=== PATIENT | female | born 1950 | race Caucasian/White ===

== ENCOUNTER → 2019-10-01 09:10 | Outpatient (BNVA) | payer BC, MEDICARE, SELFPAY | PROVIDERS: Family Provider Family Medicine; Visit Provider Family Medicine | DX: I10 Essential (primary) hypertension (principal); E11.9 Type 2 diabetes mellitus without complications; R60.0 Localized edema; K21.9 Gastro-esophageal reflux disease without esophagitis; E55.9 Vitamin D deficiency, unspecified | CPT/HCPCS: 80053; 80061; 82044; 82306; 85025 ==

== ENCOUNTER → 2019-11-29 15:52 | Outpatient (BNVA) | payer MEDICARE, BC, SELFPAY | PROVIDERS: Family Provider Family Medicine; PCP Family Medicine; Visit Provider Family Medicine | DX: I10 Essential (primary) hypertension (principal) | CPT/HCPCS: 80053 ==

== ENCOUNTER → 2020-01-04 08:52 | Outpatient (BNVA) | payer BC, MEDICARE, SELFPAY | PROVIDERS: Family Provider Family Medicine; PCP Family Medicine; Visit Provider Family Medicine | DX: E78.5 Hyperlipidemia, unspecified (principal); E55.9 Vitamin D deficiency, unspecified | CPT/HCPCS: 80053; 80061; 82306 ==

== ENCOUNTER 2020-01-05 08:52 | Emergency (ER) | payer BC, MEDICARE, SELFPAY ==
[2020-01-05 08:57] VITALS: BP 153/95; PULSE 115; RESP 18; TEMP 36.5; O2SAT 94; BMI 35.2
--- NOTE | 2020-01-05 09:19 | ED_ITS ---
HPI - Arrhythmia/Palpitations General: Chief Complaint: Arrhythmia/Palpitations Stated Complaint: HIGH HR/HEART MONITOR PLACED 01/03 Time Seen by Provider: 01/05/20 09:04 History of Present Illness: HPI narrative: 69-year-old female presents after being started on a Holter monitor and having events get called and. She has had one little very brief episode a look like V. tach that was nonsustained looks like probably 3-4 beats then she had some intermittent atrial fibrillation when she presented here she is in atrial fibrillation she is noticing palpitations. She has had this for the last 2 weeks she has noticed that emotional and physical exertion will worsen it bringing about it is relieved by rest. She never had any chest pain with that she never had any shortness of breath with it. Denies any other respiratory symptoms associated with no nausea or vomiting. MD complaint: rapid heart beat, heart racing , skipped beats , palpitations and irregular heart beat Onset (ago): week(s) Duration: intermittent Severity: mild Context: occurred during exertion Arrhythmia history: atrial fibrillation Associated symptoms: Reports no associated symptoms; Deny cough, diaphoresis, nausea, paresthesias, pre-syncope, sense of impending doom, short of breath, syncope or vomiting Review of Systems Const: Denies: diaphoresis ENMT: Denies: throat pain, ear or mastoid pain, nasal discharge or nasal congestion Card: Denies: syncope or pre-syncope Resp: Denies: dyspnea, productive cough or non-productive cough GI: Denies: nausea or vomiting : Denies: flank pain, difficulty voiding, dysuria, urinary frequency or urinary urgency Skin/Breast: Denies: rash or pruritus PFSH ED PFSH: Medical History Essential hypertension Fibromyalgia Leg edema Surgical History H/O knee surgery History of hammer toe correction History of hand surgery History of rectal sphincterotomy Hx of varicose vein stripping Family History Other Diabetes Hypertension Social History Smoking and tobacco status: never smoked Alcohol intake: never Physical Exam Const: COMMON NORMALS: no acute distress GENERAL APPEARANCE: cooperative and comfortable ORIENTATION/CONSCIOUSNESS: Yes awake, Yes oriented to person, Yes oriented to place and Yes oriented to time HENMT: COMMON NORMALS: normocephalic, atraumatic, hearing grossly normal bilaterally, external ears normal, EAC's normal, TM's normal bilaterally, Normal nasal mucous membranes and turbinates present, moist oral mucous membranes and oropharynx normal HEAD & SCALP: normocephalic and atraumatic NOSE: Normal nasal mucous membranes and turbinates present EXTERNAL EAR: Yes external ears normal EXTERNAL AUDITORY CANAL: EAC's normal TYMPANIC MEMBRANE: TM's normal bilaterally Eye: COMMON NORMALS: Equal, round and reactive pupils present, EOMs intact bilaterally, conjunctivae normal and no scleral icterus CONJUNCTIVA: Yes conjunctivae normal PUPIL: Yes Equal, round and reactive pupils present Neck/C-Spine: COMMON NORMALS: full ROM, no lymphadenopathy, supple and no JVD Lymph: LYMPHATIC: no lymphadenopathy noted and no lymphedema noted Resp: COMMON NORMALS: normal respiratory effort, No retractions, No use of accessory muscles and clear to auscultation bilaterally AUSCULTATION: clear to auscultation bilaterally Cardio: COMMON NORMALS: no JVD, regular rate, regular rhythm and No murmurs present (Cardio) RATE: regular rate RHYTHM: regular rhythm GI: COMMON NORMALS: Soft to palpation and No hepatosplenomegaly present AUSCULTATION: Yes normoactive bowel sounds PALPATION: Yes Soft to palpation, No Tenderness to palpation present (GI), No Guarding due to palpation present (GI) and Yes No hepatosplenomegaly present Extremity: COMMON NORMALS: normal to inspection, capillary refill normal, no clubbing, cyanosis or edema, no calf tenderness and no pedal edema Neuro: SENSORIUM/ORIENTATION: Yes oriented to person, Yes oriented to place and Yes oriented to time Skin: COMMON NORMALS: no rashes or lesions noted GENERAL SKIN EXAM: no rashes or lesions noted Course Vital Signs: Vital signs: Vital Signs Temperature 97.6 F 01/05/20 13:10 Pulse Rate 109 H 01/05/20 13:10 Respiratory Rate 18 01/05/20 13:10 Blood Pressure 169/104 01/05/20 13:10 Pulse Oximetry 98 01/05/20 13:10 MDM - Arrhythmia/Palpitations Lab Data: Labs: Lab Results 01/05/20 01/05/20 01/05/20 Range/Units 09:30 09:30 09:30 WBC 6.6 (4.0-10.0) 10^3/ uL RBC 4.63 (4.1-5.3) 10^6/u L Hgb 13.0 (11.5-15.3) g/dL Hct 42.2 (37.0-47.0) % MCV 91.1 (81-99) fL MCH 28.1 (28.0-34.0) pg MCHC 30.8 (30.0-36.0) g/dL RDW 14.4 (12.1-15.1) % Plt Count 158 (130-400) 10^3/c mm MPV 10.5 H (7.4-10.4) fL Neut % (Auto) 63.8 % Lymph % (Auto) 20.0 % [place] % (Auto) 12.8 % Eos % (Auto) 2.6 % Baso % (Auto) 0.5 % Neut # (Auto) 4.24 (1.8-7.7) 10^3/u L Lymph # (Auto) 1.3 (0.8-4.8) 10^3/u L [place] # (Auto) 0.9 (0.2-0.9) 10^3/u L Eos # (Auto) 0.2 (0.0-0.8) 10^3/u L Baso # (Auto) 0.0 (0.0-0.1) 10^3/u L Nucleated RBC % (a uto) 0 % Nucleated RBCs # 0.0 /100WBC Sodium 140 (136-145) mmol/L Potassium 4.3 (3.5-5.1) mmol/L Chloride 105 (98-107) mmol/L Carbon Dioxide 26 (22-29) mmol/L Anion Gap 13.3 (5-19) BUN 21 (8-23) mg/dL Creatinine 1.1 H (0.5-0.9) mg/dL GFR Calculation 49.5 L (90-130) mL/min Glucose 127 H (65-115) mg/dL Calculated Osmolal ity 288 (285-295) mOsm/k g Calcium 9.5 (8.5-10.5) mg/dL Total Bilirubin 0.3 (0.15-1.2) mg/dL AST 55 H (0-32) U/L ALT 75 H (0-33) U/L Alkaline Phosphata se 69 (35-105) IU/L Creatine Kinase 503 H* (26-192) U/L Troponin T Baselin e 26 H (0-10) ng/L Troponin T 120 Min poarch (0-10) ng/L Delta Troponin T (0-10) ABS# Total Protein 6.8 (6.6-8.7) g/dL Albumin 4.5 (3.5-5.2) g/dL Globulin 2.3 (1.3-4.6) g/dL 01/05/20 Range/Units 11:31 WBC (4.0-10.0) 10^3/ uL RBC (4.1-5.3) 10^6/u L Hgb (11.5-15.3) g/dL Hct (37.0-47.0) % MCV (81-99) fL MCH (28.0-34.0) pg MCHC (30.0-36.0) g/dL RDW (12.1-15.1) % Plt Count (130-400) 10^3/c mm MPV (7.4-10.4) fL Neut % (Auto) % Lymph % (Auto) % [place] % (Auto) % Eos % (Auto) % Baso % (Auto) % Neut # (Auto) (1.8-7.7) 10^3/u L Lymph # (Auto) (0.8-4.8) 10^3/u L [place] # (Auto) (0.2-0.9) 10^3/u L Eos # (Auto) (0.0-0.8) 10^3/u L Baso # (Auto) (0.0-0.1) 10^3/u L Nucleated RBC % (a uto) % Nucleated RBCs # /100WBC Sodium (136-145) mmol/L Potassium (3.5-5.1) mmol/L Chloride (98-107) mmol/L Carbon Dioxide (22-29) mmol/L Anion Gap (5-19) BUN (8-23) mg/dL Creatinine (0.5-0.9) mg/dL GFR Calculation (90-130) mL/min Glucose (65-115) mg/dL Calculated Osmolal ity (285-295) mOsm/k g Calcium (8.5-10.5) mg/dL Total Bilirubin (0.15-1.2) mg/dL AST (0-32) U/L ALT (0-33) U/L Alkaline Phosphata se (35-105) IU/L Creatine Kinase (26-192) U/L Troponin T Baselin e (0-10) ng/L Troponin T 120 Min poarch 22.96 H (0-10) ng/L Delta Troponin T -3.04 L (0-10) ABS# Total Protein (6.6-8.7) g/dL Albumin (3.5-5.2) g/dL Globulin (1.3-4.6) g/dL Discharge Plan Discharge Patient Disposition: Left Against Medical Advice Clinical Impression: Atrial fibrillation, BETH (acute kidney injury), Rhabdomyolysis Condition: Stable Prescriptions: New metoprolol succinate 25 mg capsule,sprinkle,ER 24hr 25 mg PO DAILY Qty: 30 RF: 0 Held lisinopril 20 mg tablet 20 mg PO DAILY Qty: 30 RF: 3 Hold Instructions: Resume on 01/12/20. Lasix 20 mg tablet 20 mg PO DAILY RF: 0 Hold Instructions: Resume on 01/12/20. Hold until your primary care doctor advise you to resume No Action omeprazole 20 mg capsule,delayed release(DR/EC) 20 mg PO DAILY Qty: 30 RF: 5 atorvastatin 10 mg tablet 10 mg PO DAILY Qty: 45 RF: 0 potassium chloride 10 mEq tablet,ER particles/crystals 10 meq PO DAILY RF: 0 Referrals: Ashley Lizama DO [Primary Care Provider] - Activity Restrictions/Additional Instructions: You have several serious medical conditions identified during your stay in the emergency room. These include acute kidney injury rhabdomyolysis and atrial fibrillation you have elected not to be placed on observation as we recommended. These medical conditions could deteriorate further leading to severe organ dysfunction, stroke or . Recommend you follow-up with your primary care doctor as soon as possible. Discharge Date/Time: 01/05/20 13:13 Coding Level of Care Code ED Retail Wireless Sales Consultant for g Fwd Exam Comprehensive
[2020-01-05 09:20] VITALS: BP 148/94; PULSE 116; RESP 18; O2SAT 97
--- NOTE | 2020-01-05 09:25 | ECG_ITS ---
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 Measurements Intervals [place] Rate: 113 P: 266 MD: 106 QRS: 25 QRSD: 87 T: -5 QT: 303 QTc: 417 Interpretive Statements ATRIAL FLUTTER NON SPECIFIC ST-T WAVE CHANGES IN INFERIOR LEADS No previous ECG available for comparison Electronically Signed On 01-05-2020 10:59:36 CDT by Armen Pike M.D. [email or web address]/[id number] f
--- NOTE | 2020-01-05 09:25 | XR_ITS ---
WS: [id number] PORTABLE CHEST HISTORY: dyspnea/cough COMPARISON: None available. Lungs are clear and well expanded. No pleural effusion or pneumothorax. Cardiac size: Mildly enlarged cardiac silhouette. Cardiac loop recorder over the central thoracic spi ne. Mediastinum/Aorta: Mild atherosclerosis aorta. No osseous abnormality seen. XR/XR chest 1V portable [id number] IMPRESSION: Mild cardiomegaly and mild atherosclerosis aorta.
[2020-01-05] MEDS: metoprolol tartrate 25 mg Tablet PO (09:36)
[2020-01-05] MEDS: metoprolol tartrate 1 mg/1 mL SDV 5 mL 2.5 MG IV (09:36)
[2020-01-05 09:43] LABS: Basophils % 0.5 %; Eosinophils # 0.2 10^3/uL (0.0-0.8); Eosinophils % 2.6 %; Hematocrit 42.2 % (37.0-47.0); Lymphocytes # 1.3 10^3/uL (0.8-4.8); Mean Corpuscular HGB Conc 30.8 g/dL (30.0-36.0); Mean Corpuscular Hemoglobin 28.1 pg (28.0-34.0); Mean Corpuscular Volume 91.1 fL (81-99); Mean Platelet Volume 10.5 fL (7.4-10.4); Monocytes # 0.9 10^3/uL (0.2-0.9); Monocytes % 12.8 %; Neutrophils # 4.24 10^3/uL (1.8-7.7); Neutrophils % 63.8 %; Nucleated Red Blood Cells % 0 %; Platelet Count 158 10^3/cmm (130-400); Red Blood Count 4.63 10^6/uL (4.1-5.3); Red Cell Distribution Width 14.4 % (12.1-15.1); White Blood Count 6.6 10^3/uL (4.0-10.0)
[2020-01-05 09:59] LABS: Alanine Aminotransferase 75 U/L (0-33); Albumin Level 4.5 g/dL (3.5-5.2); Alkaline Phosphatase 69 IU/L (35-105); Anion Gap 13.3 (5-19); Aspartate Amino Transferase 55 U/L (0-32); Blood Urea Nitrogen 21 mg/dL (8-23); Calcium 9.5 mg/dL (8.5-10.5); Carbon Dioxide 26 mmol/L (22-29); Chloride 105 mmol/L (98-107); Globulin 2.3 g/dL (1.3-4.6); Glomerular Filtration Rate 49.5 mL/min (90-130); Glucose 127 mg/dL (65-115); Osmolality Calculated 288 mOsm/kg (285-295); Potassium 4.3 mmol/L (3.5-5.1); Sodium 140 mmol/L (136-145); Total Bilirubin 0.3 mg/dL (0.15-1.2); Total Protein 6.8 g/dL (6.6-8.7)
[2020-01-05 10:00] LABS: Troponin(5th) Baseline 26 ng/L (0-10)
[2020-01-05 10:10] LABS: Creatine Phosphokinase 503 U/L (26-192)
[2020-01-05 10:42] VITALS: BP 146/95; PULSE 110; RESP 18; O2SAT 96
--- NOTE | 2020-01-05 11:25 | ECG_ITS ---
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 Measurements Intervals [place] Rate: 109 P: 259 PA: 152 QRS: 7 QRSD: 94 T: 5 QT: 339 QTc: 457 Interpretive Statements ATRIAL FLUTTER Non specific ST-T wave changes are noted Compared to ECG 01/05/2020 09:33:05 No significant changes are noted Electronically Signed On 01-05-2020 12:13:56 CDT by Armen Pike M.D. [email or web address].[employer]store/[id number] f
[2020-01-05 11:55] VITALS: BP 134/81; PULSE 82; RESP 16
[2020-01-05] MEDS: metoprolol tartrate 1 mg/1 mL SDV 5 mL 5 MG IV (12:11)
[2020-01-05 12:34] LABS: Troponin 5 2HR 22.96 ng/L (0-10)
[2020-01-05 12:45] LABS: Troponin 5 2HR Delta -3.04 ABS# (0-10)
[2020-01-05 13:10] VITALS: BP 169/104; PULSE 109; RESP 18; TEMP 36.4; O2SAT 98
== END 2020-01-05 13:13 | disposition left against medical advice (07) ==
PROVIDERS: Emergency Provider Family Medicine; PCP Family Medicine
DX: I48.91 Unspecified atrial fibrillation (principal); N17.9 Acute kidney failure, unspecified; M62.82 Rhabdomyolysis; Z53.21 Procedure and treatment not carried out due to patient leaving prior to being seen by health care provider; I10 Essential (primary) hypertension
CPT/HCPCS: 12345; 36415; 71045; 80053; 82550; 84484; 85025; 93005; 93010; 96374; 96376; 99283; 99284; J3490

== ENCOUNTER 2020-03-29 12:46 | Outpatient (CLI) | payer BC, MEDICARE, SELFPAY ==
--- NOTE | 2020-03-29 12:51 | USCV_ITS ---
Tammy Rangel Age: 70 Gender: F : 1950 Exam Date: 03/29/2020 13:14 Ordering Phys: Meenu Meza MD Technologist: Dominique Dozier Exam Location: [facility] [place] Indication: CHRONIC AFIB BP: / HR: 101 Rhythm: Atrial flutter Technical Quality: Adequate MEASUREMENTS (Male / Female) Normal Values 2D ECHO LV Diastolic Diameter PLAX 3.1 cm 4.2 - 5.9 / 3.9 - 5.3 cm LV Systolic Diameter PLAX 2.5 cm LV Chamber Size 3.2 cm IVS Diastolic Thickness 1.2 cm 0.6 - 1.0 / 0.6 - 0.9 cm IVS Systolic Thickness 1.6 cm LVPW Diastolic Thickness 1.1 cm 0.6 - 1.0 / 0.6 - 0.9 cm LVPW Systolic Thickness 1.6 cm RV Chamber Size 3.6 cm LVOT Diameter 2.0 cm LV Ejection Fraction 2D Teich 45.3 % LV Ejection Fraction MOD 2C 55.5 % LV Ejection Fraction 2C AL 55.8 % LA Diameter 3.2 cm LA Width 2.9 cm LA Height 4.8 cm RA Width 4.6 cm RA Height 5.8 cm Aorta at Sinotubular Diameter 2.7 cm M-MODE LV Diastolic Diameter MM 3.5 cm 4.2 - 5.9 / 3.9 - 5.3 cm LV Systolic Diameter MM 2.6 cm LV Ejection Fraction MM Teich 50.9 % IVS Diastolic Thickness MM 1.3 cm 0.6 - 1.0 / 0.6 - 0.9 cm IVS Systolic Thickness MM 1.4 cm LVPW Diastolic Thickness MM 1.4 cm 0.6 - 1.0 / 0.6 - 0.9 cm LVPW Systolic Thickness MM 1.8 cm RV Diastolic Diameter MM 2.8 cm Aortic Annulus Diameter 2.7 cm LA Ao Ratio MM 1.5 MV E Point Septal Separation 0.4 cm DOPPLER AV Peak Velocity 121.0 cm/s LVOT Peak Velocity 84.0 cm/s AV Area Cont Eq vti 2.4 cm squared AV Area Cont Eq pk 2.2 cm squared MV Area PHT 3.2 cm squared MV E' Velocity 66.0 cm/s Mitral E to MV E' Ratio 9.8 Mitral E to LV E' Lateral Ratio 9.2 Mitral E to LV E' Septal Ratio 10.6 TR Peak Velocity 200.3 cm/s TR Peak Gradient 16.0 mmHg TR Mean Velocity 112.8 cm/s TR Mean Gradient 6.2 mmHg TR Velocity Time Integral 39.6 cm TV Peak E Velocity 77.0 cm/s Right Atrial Pressure 3.0 mmHg Pulmonary Artery Systolic Pressu 19.0 mmHg PV Peak Velocity 73.3 cm/s RV Acceleration Time 0.2 s RV Ejection Time 0.5 s RV AcT/ET 0.4 FINDINGS Left Ventricle Normal left ventricular size and systolic function with no regional wall motion abnormalities. LVEF is 55 to 60%. Mild left ventricular hypertrophy is noted. Diastolic function cannot be determined because of atrial flutter. Right Ventricle The right ventricle is normal in size and function. Right Atrium The right atrium is mildly dilated. Left Atrium The left atrium is normal in size. Mitral Valve Structurally normal mitral valve without significant stenosis or prolapse. There is no mitral regurgitation. Aortic Valve Structurally normal aortic valve without significant sclerosis or stenosis. There is no aortic regurgitation. Tricuspid Valve Structurally normal tricuspid valve without significant stenosis . Mild tricuspid regurgitation is noted. RVSP is 15 to 20 mmHg. RA pressure is 0 to 5 mmHg. Pulmonic Valve Structurally normal pulmonic valve without significant stenosis. There is no pulmonic regurgitation. Pericardium Normal pericardium without effusion. Aorta Normal ascending aorta dimension. CONCLUSIONS LV systolic function is normal. Diastolic function is indeterminate because of atrial flutter. Mildly dilated right atrium is noted. Mild tricuspid regurgitation is present. Compared to prior study from 12/10/2018, patient's diastolic function can not be determined now because of atrial flutter. Armen Pike MD (Electronically Signed) Final Date: 30 March 2020 09:10 S
== END 2020-03-29 12:47 | disposition home or self-care (01) ==
PROVIDERS: PCP Internal Medicine; Visit Provider Internal Medicine
DX: I48.91 Unspecified atrial fibrillation (principal); I07.1 Rheumatic tricuspid insufficiency; I10 Essential (primary) hypertension
CPT/HCPCS: 80048; 83880; 93306

== ENCOUNTER 2020-06-08 12:59 | Outpatient (CLI) | payer BC, MEDICARE, SELFPAY | END 2020-06-08 13:00 | disposition home or self-care (01) | LOC: WOUND 13:03 | PROVIDERS: PCP Internal Medicine; Visit Provider Nurse Practitioner Family | DX: L97.822 Non-pressure chronic ulcer of other part of left lower leg with fat layer exposed (principal) | CPT/HCPCS: 11042; 87070; 87077; 87176; 87186; 87205; G0463 ==

== ENCOUNTER 2020-06-14 15:11 | Outpatient (CLI) | payer BC, MEDICARE, SELFPAY ==
--- NOTE | 2020-06-14 15:18 | MM_ITS ---
WS: [id number] BILATERAL DIGITAL SCREENING MAMMOGRAPHY WITH CAD CLINICAL INFORMATION: SCREENING HISTORY: Screening mammogram. No current complaints. COMPARISON: TECHNIQUE: Bilateral CC and MLO views. FINDINGS: Scattered fibroglandular densities bilaterally. No suspicious focal mass, asymmetry, calcifications, or architectural distortion. No evidence of malignancy. MM/[place] [id number] IMPRESSION: BI-RADS: 1-Negative FOLLOW UP: 1 Year Follow-up Recommend return to annual screening mammography.
== END 2020-06-14 15:12 | disposition home or self-care (01) ==
PROVIDERS: PCP Internal Medicine; Visit Provider Internal Medicine
DX: Z12.31 Encounter for screening mammogram for malignant neoplasm of breast (principal)
CPT/HCPCS: 77067

== ENCOUNTER 2020-06-15 14:35 | Outpatient (CLI) | payer BC, MEDICARE, SELFPAY | END 2020-06-15 14:36 | disposition home or self-care (01) | LOC: WOUND 14:36 | PROVIDERS: PCP Internal Medicine; Visit Provider Thoracic Surgery (Cardiothoracic Vascular Surgery) | DX: I87.2 Venous insufficiency (chronic) (peripheral) (principal); L97.822 Non-pressure chronic ulcer of other part of left lower leg with fat layer exposed | CPT/HCPCS: 11042 ==

== ENCOUNTER 2020-06-19 13:47 | Outpatient (CLI) | payer BC, MEDICARE, SELFPAY | END 2020-06-19 13:48 | disposition home or self-care (01) | LOC: WOUND 13:48 | PROVIDERS: PCP Internal Medicine; Visit Provider Nurse Practitioner Family | DX: I87.2 Venous insufficiency (chronic) (peripheral) (principal); L97.822 Non-pressure chronic ulcer of other part of left lower leg with fat layer exposed | CPT/HCPCS: 11042 ==

== ENCOUNTER 2020-06-26 13:35 | Outpatient (CLI) | payer BC, MEDICARE, SELFPAY | END 2020-06-26 13:36 | disposition home or self-care (01) | LOC: WOUND 13:36 | PROVIDERS: PCP Internal Medicine; Visit Provider Nurse Practitioner Family | DX: L97.822 Non-pressure chronic ulcer of other part of left lower leg with fat layer exposed (principal); L98.492 Non-pressure chronic ulcer of skin of other sites with fat layer exposed; I87.2 Venous insufficiency (chronic) (peripheral) | CPT/HCPCS: 11042 ==

== ENCOUNTER 2020-07-03 14:20 | Outpatient (CLI) | payer MEDICARE, SELFPAY | END 2020-07-03 14:21 | disposition home or self-care (01) | LOC: WOUND 14:21 | PROVIDERS: PCP Internal Medicine; Visit Provider Thoracic Surgery (Cardiothoracic Vascular Surgery) | DX: I87.2 Venous insufficiency (chronic) (peripheral) (principal); L97.822 Non-pressure chronic ulcer of other part of left lower leg with fat layer exposed | CPT/HCPCS: 11042 ==

== ENCOUNTER 2020-07-07 15:42 | Outpatient (CLI) | payer MEDICARE, SELFPAY ==
--- NOTE | 2020-07-07 15:54 | XR_ITS ---
WS: [id number] CHEST 2 VIEWS HISTORY: COUGH COMPARISON: 01/05/2020 Lungs: Clear with no abnormality. No pleural effusion or pneumothorax. Cardiac size: Mildly enlarged cardiac silhouette. Mediastinum/Aorta: Mild atherosclerosis aorta. Bones: Normal. XR/XR chest 2V* [id number] IMPRESSION: Mild cardiomegaly. No pneumonia.
== END 2020-07-07 15:43 | disposition home or self-care (01) ==
LOC: RAD 15:45
PROVIDERS: PCP Internal Medicine; Visit Provider Internal Medicine
DX: R05 Cough (principal); I51.7 Cardiomegaly
CPT/HCPCS: 71046

== ENCOUNTER 2020-07-10 14:04 | Outpatient (CLI) | payer MEDICARE, BC, SELFPAY | END 2020-07-10 14:05 | disposition home or self-care (01) | PROVIDERS: PCP Internal Medicine; Visit Provider Nurse Practitioner Family | DX: I87.2 Venous insufficiency (chronic) (peripheral) (principal); L97.822 Non-pressure chronic ulcer of other part of left lower leg with fat layer exposed | CPT/HCPCS: 11042; A6545 ==

== ENCOUNTER 2020-07-31 13:02 | Outpatient (CLI) | payer MEDICARE, SELFPAY | END 2020-07-31 13:03 | disposition home or self-care (01) | LOC: WOUND 13:03 | PROVIDERS: PCP Internal Medicine; Visit Provider Nurse Practitioner Family | DX: Z09 Encounter for follow-up examination after completed treatment for conditions other than malignant neoplasm (principal) | CPT/HCPCS: 99212 ==

== ENCOUNTER 2020-08-18 11:44 | Outpatient (CLI) | payer MEDICARE, SELFPAY ==
[2020-08-18 12:38] LABS: Albumin Level 3.7 g/dL (3.5-5.2); Blood Urea Nitrogen 17 mg/dL (8-23); Calcium 9.3 mg/dL (8.5-10.5); Carbon Dioxide 28 mmol/L (22-29); Glomerular Filtration Rate 55.1 mL/min (90-130); Glucose 154 mg/dL (65-115); Phosphorus 3.5 mg/dL (2.5-4.5)
[2020-08-18 12:52] LABS: Anion Gap 11.6 (5-19); Chloride 105 mmol/L (98-107); Potassium 3.6 mmol/L (3.5-5.1); Sodium 141 mmol/L (136-145)
[2020-08-18 12:53] LABS: Creatinine Urine, Random 121 mg/dL (28-217)
[2020-08-18 13:06] LABS: Microalbum Creatinine Ratio Ur 901 mg/dL (0-20); Microalbumin Random Urine 109 ug/dL (0-20)
[2020-08-21 14:37] LABS: KAPPA LIGHT CHAIN, FREE, SERUM 46.6 mg/L (3.3-19.4); KAPPA/LAMBDA LIGHT CHAINS FREE 1.78 (0.26-1.65); LAMBDA LIGHT CHAIN, FREE, SERU 26.2 mg/L (5.7-26.3)
== END 2020-08-18 11:45 | disposition home or self-care (01) ==
LOC: LAB 11:53
PROVIDERS: PCP Internal Medicine; Visit Provider Internal Medicine Nephrology
DX: N18.32 Chronic kidney disease, stage 3b (principal)
CPT/HCPCS: 36415; 80069; 82044; 83883

== ENCOUNTER → 2021-08-06 15:02 | Outpatient (BNVA) | payer MEDICARE, SELFPAY | PROVIDERS: PCP Internal Medicine; Visit Provider Internal Medicine Cardiovascular Disease | DX: R07.9 Chest pain, unspecified (principal); R06.02 Shortness of breath; I11.0 Hypertensive heart disease with heart failure; I50.33 Acute on chronic diastolic (congestive) heart failure; E78.5 Hyperlipidemia, unspecified; I48.92 Unspecified atrial flutter; R60.0 Localized edema | CPT/HCPCS: 80048; 83880; 99214; 99215 ==

== ENCOUNTER → 2021-08-16 14:05 | Outpatient (BNVA) | payer MEDICARE, SELFPAY | PROVIDERS: PCP Internal Medicine; Visit Provider Internal Medicine Cardiovascular Disease | DX: Z20.822 Contact with and (suspected) exposure to COVID-19 (principal) | CPT/HCPCS: 87635 ==

== ENCOUNTER 2021-08-17 09:49 | Outpatient (CLI) | payer MEDICARE, SELFPAY ==
[2021-08-16 12:50] VITALS: BMI 34.0
--- NOTE | 2021-08-17 10:02 | P.ANESASSM_ITS ---
Pre-Anesthetic Assessment Height/Weight: Height 1.68 m Weight 95.708 kg Operation Date: 08/17/21 11:00 Proposed Procedures p NAYANA(Not Applicable) - Cayetano Lynne MD s Cardioversion(Not Applicable) - Cayetano Lynne MD Familial anesthetic complications: None Was Beta Brielle taken within 24 hours: N/A Was Clonidine taken within 24 hours: N/A Last intake: > 8hrs Social No alcohol and No tobacco Exam alert, oriented x 3, clear to auscultation bilaterally and regular rate & rhythm Airway Mallampati: Class IV Dentition: other (missing teeth) Pulmonary Shortness of Breath CV/HEM Atrial Fibrillation and Hypertension None reported Hepatic None reported GI Gastroesophageal Reflux Disease Metabolic None reported Musc/skel None reported Neuropsych None reported Anesthetic Plan ASA status: 3 Anesthesia: MAC Risk of > 500 ml blood loss (7ml/kg in children): No Medications/Allergies Home Medications Medication Instructions Recorded Confirmed Last Taken Type atorvastatin 10 mg tablet 10 mg PO DAILY #90 tab 01/17/20 08/16/21 Unknown Rx omeprazole 20 mg capsule,delayed 20 mg PO DAILY #30 cap 03/03/20 08/16/21 Unknown Rx release ascorbic acid (vitamin C) 1,000 mg 500 mg PO DAILY 08/06/21 08/16/21 Unknown History tablet cholecalciferol (vitamin D3) 75 75 mcg PO DAILY 08/06/21 08/16/21 Unknown History mcg (3,000 unit) tablet diltiazem HCl 360 mg 360 mg PO DAILY cap 08/06/21 08/16/21 Unknown History capsule,extended release 24 hr losartan 100 mg tablet 100 mg PO DAILY 30 Days #30 tab 08/06/21 08/16/21 Unknown Rx rivaroxaban 15 mg tablet (Xarelto) 15 mg PO DAILY tab 08/06/21 08/16/21 Unknown History furosemide 80 mg tablet 80 mg PO BID 08/16/21 08/16/21 Unknown History potassium chloride 20 mEq 20 meq PO BID 08/16/21 08/16/21 Unknown History tablet,extended release(part/cryst) Allergies Allergy/AdvReac Type Severity Reaction Status Date / Time doxycycline Allergy rash,itch Verified 08/06/21 15:31 Sulfa (Sulfonamide Allergy rash, Verified 08/06/21 15:31 Antibiotics) itching apixaban [From Eliquis] AdvReac ADR-Abdominal Verified 08/06/21 15:31 Pain lisinopril AdvReac ADR-Cough Verified 08/06/21 15:31 [facility] Anesthesia Medical History Atrial flutter Dyslipidemia Essential hypertension Fibromyalgia Leg edema Surgical History H/O knee surgery History of hammer toe correction History of hand surgery History of rectal sphincterotomy Hx of varicose vein stripping Family History Father CAD (coronary artery disease) Sister Cancer Sister Cancer Mother Diabetes Brother Lung disease Other Hypertension Denies family history of Clotting disorder Dementia Chronic kidney disease (CKD) Suicide Anesthesia complication Bleeding disorder Stroke Social History Smoking and tobacco status: never smoked Alcohol intake: never Data Anesthesia Cardiac Studies: Echocardiogram Ultrasound 03/29/20 Holter Monitor 01/20/20
[2021-08-17 10:33] VITALS: BP 171/94; PULSE 103; RESP 20; TEMP 36.8; O2SAT 98
--- NOTE | 2021-08-17 10:40 | ECG_ITS ---
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 Measurements Intervals [place] Rate: 99 P: -86 ND: 150 QRS: 9 QRSD: 82 T: -15 QT: 354 QTc: 455 Interpretive Statements ATRIAL FLUTTER LOW QRS VOLTAGE IN PRECORDIAL LEADS [QRS DEFLECTION < 1.0 mV IN CHEST LEADS] ST DEVIATION AND MODERATE T-WAVE ABNORMALITY, CONSIDER ANTEROLATERAL ISCHEMIA [-0.1+ mV T-WAVE IN V3-V6] ST DEVIATION AND MODERATE T-WAVE ABNORMALITY, CONSIDER INFERIOR ISCHEMIA [-0.1+ mV T-WAVE IN II/aVF] Compared to ECG 01/05/2020 11:27:50 Low QRS voltage now present T-wave abnormality now present Possible ischemia now present Electronically Signed On 08-17-2021 20:11:32 CDT by Armen Pike M.D. [id number]
--- NOTE | 2021-08-17 10:43 | USCV_ITS ---
Tammy Rangel Age: 71 Gender: F : 1950 Exam Date: 08/17/2021 11:07 Ordering Phys: Cayetano Lynne MD ([email or web address]) Technologist: Zahra Soto Exam Location: [facility] [place] Indication: Cardioversion BP: 185 / 83 HR: 99 Rhythm: Sinus Technical Quality: Adequate MEASUREMENTS (Male / Female) Normal Values Medications Patient given IV sedation by anesthesia service, for details please refer to the anesthesia report. Complications None. Proc. Components The patient was brought to the NAYNAA examination room in a fasting state after obtaining an informed consent. The NAYANA probe was passed into the posterior pharynx , mid-esophagus, distal esophagus, and gastric fundus. NAYANA was performed at multiple levels. FINDINGS Left Ventricle Normal left ventricular size and systolic function, EF 55% Right Ventricle Mildly increased right ventricular size. Right Atrium Mildly increased right atrial size. Left Atrium Mildly dilated LA Appendage Normal contractility. No mass or thrombi noted. IA Septum Interatrial septum appears to be intact with no evidence of any ASD or patent foramen ovale. Mitral Valve Mild mitral valve regurgitation. Aortic Valve Tricuspid valve with no masses or vegetations Tricuspid Valve [id number] tricuspid valve regurgitation. Pulmonic Valve No masses or thrombi noted. Pericardium No thickening/calcification of the pericardium. Aorta Normal size aortic root and proximal ascending aorta. CONCLUSIONS 1. No intracardiac masses or thrombi. 2. Normal left atrial appendage contractility with no evidence of thrombus 3. Mildly dilated right atrium, right ventricle and left atrium 4. Mild to moderate TR with mild MR. 5. Normal LV size ejection fraction of 55% 6. No pericardial effusion 7. No evidence of ASD or PFO by color-flow Doppler examination. Dr Cayetano Lynne MD [facility] (Electronically Signed) Final Date: 17 August 2021 18:32 S
[2021-08-17] MEDS: sodium chloride 0.9% 1,000 ML 30 ML IV (11:02)
--- NOTE | 2021-08-17 11:02 | W.PM.OPSUD ---
Surgery/Procedure H&P Update DATE OF PROCEDURE: August 17, 2021 DATE H&P PERFORMED: 08/06/21 H&P UPDATE INFORMATION: I have reviewed H&P completed within last 30 days, I have examined patient prior to procedure and No changes to prior documentation PRIMARY INDICATION FOR PROCEDURE: Atrial flutter with 2:1 block PLANNED PROCEDURE: Operation Date: 08/17/21 11:00 Proposed Procedures p NAYANA(Not Applicable) - Cayetano Lynne MD s Cardioversion(Not Applicable) - Cayetano Lynne MD
--- NOTE | 2021-08-17 11:25 | ECG_ITS ---
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 Measurements Intervals [place] Rate: 84 P: 18 TN: 159 QRS: 9 QRSD: 85 T: -10 QT: 385 QTc: 455 Interpretive Statements SINUS RHYTHM LOW QRS VOLTAGE IN PRECORDIAL LEADS [QRS DEFLECTION < 1.0 mV IN CHEST LEADS] PROBABLE INFERIOR MYOCARDIAL INFARCTION , OF INDETERMINATE AGE [35 ms Q WAVE IN II/aVF] Compared to ECG 08/17/2021 10:53:21 Myocardial infarct finding now present Ectopic atrial rhythm no longer present T-wave abnormality no longer present Possible ischemia no longer present Electronically Signed On 08-17-2021 20:10:56 CDT by Armen Pike M.D. [id number]
[2021-08-17 11:28] VITALS: BP 104/60; PULSE 82; RESP 10; TEMP 36.1; O2SAT 99
[2021-08-17 11:40] VITALS: BP 120/69; PULSE 84; RESP 14; O2SAT 98
[2021-08-17] MEDS: flecainide 100 mg Tablet 50 MG PO (12:10)
[2021-08-17 12:15] VITALS: BP 121/69; PULSE 83; RESP 16; TEMP 36.3; O2SAT 99
--- NOTE | 2021-08-17 12:37 | ANE.PACU2 ---
Inpatient post-anesthesia follow up: Airway intact: Yes Vital signs: Temperature 97.3 F Pulse Rate 83 Respiratory Rate 16 Blood Pressure 121/69 Pulse Oximetry 99 Oxygen Delivery Me thod Room Air Oxygen Flow Rate Fraction of Inspir ed Oxygen Hydration adequate: Yes Nausea and vomiting: No Pain level: 2 Mental status: Baseline
== END 2021-08-17 09:50 | disposition home or self-care (01) ==
PROVIDERS: PCP Internal Medicine; Visit Provider Internal Medicine Cardiovascular Disease
PROC: (CPT 93312; principal; 2021-08-17 11:00)
PROC: 5A2204Z Restoration of Cardiac Rhythm, Single (ICD-10-PCS; 2021-08-17 11:00)
DX: I48.92 Unspecified atrial flutter (principal); I10 Essential (primary) hypertension; K21.9 Gastro-esophageal reflux disease without esophagitis; E78.5 Hyperlipidemia, unspecified; M79.7 Fibromyalgia; R60.0 Localized edema
CPT/HCPCS: 92960; 93005; 93312; 93320; 93325; J2704; J7030

== ENCOUNTER → 2021-08-24 09:56 | Outpatient (BNVA) | payer MEDICARE, SELFPAY | PROVIDERS: PCP Internal Medicine; Visit Provider Nurse Practitioner Family | DX: I48.92 Unspecified atrial flutter (principal) | CPT/HCPCS: 99213 ==

== ENCOUNTER → 2021-09-07 09:51 | Outpatient (BNVA) | payer MEDICARE, SELFPAY | PROVIDERS: PCP Internal Medicine; Visit Provider Nurse Practitioner Family | DX: I48.92 Unspecified atrial flutter (principal) | CPT/HCPCS: 93005; 99214 ==

== ENCOUNTER → 2021-10-02 14:50 | Outpatient (BNVA) | payer MEDICARE, SELFPAY | PROVIDERS: PCP Internal Medicine; Visit Provider Internal Medicine Cardiovascular Disease | DX: I48.92 Unspecified atrial flutter (principal); E78.5 Hyperlipidemia, unspecified; R60.0 Localized edema; I11.0 Hypertensive heart disease with heart failure; I50.33 Acute on chronic diastolic (congestive) heart failure; Z79.01 Long term (current) use of anticoagulants | CPT/HCPCS: 36415; 80048; 83880; 99214 ==

== ENCOUNTER 2021-10-04 07:59 | Outpatient (CLI) | payer MEDICARE, SELFPAY ==
--- NOTE | 2021-10-04 08:07 | MM_ITS ---
WS: [id number] BILATERAL SCREENING 3D TOMOSYNTHESIS DIGITAL MAMMOGRAM WITH CAD HISTORY: SCREENING COMPARISON: 06/14/2020, 04/16/2019 and 04/06/2018 Bilateral CC and MLO views submitted. Computer aided detection analyzed. Breast composition: There are scattered areas of fibroglandular density. No suspicious masses, microc alcifications or architectural distortion. MM/[id number] IMPRESSION: BI-RADS: 1-Negative FOLLOW UP: 1 Year Follow-up
== END 2021-10-04 08:00 | disposition home or self-care (01) ==
LOC: RADSHAW 08:00
PROVIDERS: PCP Internal Medicine; Visit Provider Internal Medicine
DX: Z12.31 Encounter for screening mammogram for malignant neoplasm of breast (principal)
CPT/HCPCS: 77063; 77067

== ENCOUNTER 2021-10-13 15:13 | Emergency (ER) | payer MEDICARE, SELFPAY ==
[2021-10-13 15:16] VITALS: BP 153/84; PULSE 72; RESP 18; TEMP 36.8; O2SAT 96; BMI 35.0
--- NOTE | 2021-10-13 15:16 | XRR_ITS ---
PROCEDURE INFORMATION: Exam: XR Chest Exam date and time: 10/13/2021 3:44 PM Age: 71 years old Clinical indication: Pain; Chest pressure; Additional info: Chest pain TECHNIQUE: Imaging protocol: XR of the chest. Views: 1 view. COMPARISON: CR XR chest 2V* [id number] 07/07/2020 3:59 PM FINDINGS: Lungs: Unremarkable. No consolidation. Pleural spaces: Unremarkable. No pleural effusion. No pneumothorax. Heart/Mediastinum: Cardiomegaly. Bones/joints: Unremarkable. XR/XR chest 1V portable [id number] IMPRESSION: 1. Negative for infiltrate. 2. Cardiomegaly.
--- NOTE | 2021-10-13 15:20 | ECG_ITS ---
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 Measurements Intervals [place] Rate: 73 P: 42 FL: 167 QRS: 61 QRSD: 96 T: 26 QT: 429 QTc: 474 Interpretive Statements SINUS RHYTHM Compared to ECG 08/17/2021 11:37:54 Myocardial infarct finding no longer present Electronically Signed On 10-14-2021 13:26:23 CDT by Rosa Luna M.D. [id number]
[2021-10-13 15:27] VITALS: BP 153/84; PULSE 72; RESP 18; TEMP 36.8; O2SAT 96
--- NOTE | 2021-10-13 15:34 | W.ED.CHESTPA ---
HPI - Chest Pain General: Chief Complaint: Chest Pain Stated Complaint: CHEST PAIN Time Seen by Provider: 10/13/21 15:16 Source: patient Mode of arrival: ambulatory Limitations: no limitations History of Present Illness: 71-year-old female presents emergency room via EMS. She was at [facility] and began having chest discomfort ultimately ended up calling for EMS. She was given aspirin in route. She is not have any chest pain on arrival here. She has no known history of coronary artery disease. She has a history of a flutter and hypertension. MD complaint: chest pain Pertinent past history: coronary artery disease Onset (ago): minute(s) Timing of current episode: episodic Onset: during rest Pain location: substernal and left chest Pain radiation: none Severity: moderate Quality: tightness, aching and heaviness Relieving factors: nothing Exacerbating factors: nothing Associated symptoms: Deny abdominal pain, diaphoresis, dyspnea, fever(s), leg edema, nausea, palpitations, sense of impending doom, syncope or vomiting Treatment prior to arrival: none Review of Systems Const: Denies: fever(s) or diaphoresis ENMT: Denies: throat pain, ear or mastoid pain, nasal discharge or nasal congestion Card: Denies: palpitations or syncope Resp: Denies: dyspnea GI: Denies: abdominal pain, nausea or vomiting : Denies: flank pain, difficulty voiding, dysuria, urinary frequency or urinary urgency Skin/Breast: Denies: rash or pruritus [facility] PFSH: Medical History Atrial flutter Dyslipidemia Essential hypertension Fibromyalgia Leg edema Surgical History H/O knee surgery History of hammer toe correction History of hand surgery History of rectal sphincterotomy Hx of varicose vein stripping Family History Father CAD (coronary artery disease) Sister Cancer Sister Cancer Mother Diabetes Brother Lung disease Other Hypertension Denies family history of Clotting disorder Dementia Chronic kidney disease (CKD) Suicide Anesthesia complication Bleeding disorder Stroke Social History Smoking and tobacco status: never smoked Alcohol intake: never Physical Exam Const: GENERAL APPEARANCE: cooperative and comfortable ORIENTATION/CONSCIOUSNESS: Yes awake, Yes oriented to person, Yes oriented to place and Yes oriented to time HENMT: COMMON NORMALS: normocephalic, atraumatic and hearing grossly normal bilaterally HEAD & SCALP: normocephalic and atraumatic Neck/C-Spine: COMMON NORMALS: no JVD Resp: COMMON NORMALS: normal respiratory effort, No retractions, No use of accessory muscles and clear to auscultation bilaterally AUSCULTATION: clear to auscultation bilaterally Cardio: COMMON NORMALS: no JVD, regular rate, regular rhythm and No murmurs present (Cardio) RATE: regular rate RHYTHM: regular rhythm GI: COMMON NORMALS: Soft to palpation and No hepatosplenomegaly present AUSCULTATION: Yes normoactive bowel sounds PALPATION: Yes Soft to palpation, No Tenderness to palpation present (GI), No Guarding due to palpation present (GI) and Yes No hepatosplenomegaly present Extremity: COMMON NORMALS: normal to inspection, capillary refill normal, no clubbing, cyanosis or edema, no calf tenderness and no pedal edema Neuro: SENSORIUM/ORIENTATION: Yes oriented to person, Yes oriented to place and Yes oriented to time Skin: COMMON NORMALS: no rashes or lesions noted GENERAL SKIN EXAM: no rashes or lesions noted Course Vital Signs: Vital signs: Vital Signs Temperature 98.3 F 10/13/21 15:27 Pulse Rate 74 10/13/21 18:33 Respiratory Rate 16 10/13/21 17:46 Blood Pressure 128/79 10/13/21 18:33 Pulse Oximetry 96 10/13/21 18:33 MDM - Chest Pain Medical Decision Making Troponins negative EKG unremarkable's. We will add aspirin 81 mg daily I will start isosorbide mononitrate 30 mg daily set up for an outpatient cardiac sestamibi stress test and follow-up with cardiology. Medical Records I reviewed the patient's medical records. Lab Data I reviewed the patient's lab results. : 10/13/21 15:24 10/13/21 15:24 Radiology Impressions Chest X-Ray 10/13/21 15:16 IMPRESSION: 1. Negative for infiltrate. 2. Cardiomegaly. Laboratory Results WBC 7.6 10^3/uL (4.0-10.0) 10/13/21 15:24 RBC 4.82 10^6/uL (4.1-5.3) 10/13/21 15: Hgb 13.8 g/dL (11.5-15.3) 10/13/21 15: Hct 44.4 % (37.0-47.0) 10/13/21 15: MCV 92.1 fl (81-99) 10/13/21 15: MCH 28.6 pg (28.0-34.0) 10/13/21 15: MCHC 31.1 g/dL (30.0-36.0) 10/13/21 15: RDW 14.4 % (12.1-15.1) 10/13/21: Plt Count 176 10^3/cmm (130-400) 10/13/21 15: MPV 11.7 fL (7.4-10.4) H 10/13/21 15: Neut % (Auto) 52.9 % 10/13/21 15: Lymph % (Auto) 32.3 % 10/13/21 15: [place] % (Auto) 11.0 % 10/13/21 15: Eos % (Auto) 2.9 % 10/13/21 15: Baso % (Auto) 0.5 % 10/13/21: Neut # (Auto) 4.03 10^3/uL (1.8-7.7) 10/13/21 15: Lymph # (Auto) 2.5 10^3/uL (0.8-4.8) 10/13/21: [place] # (Auto) 0.8 10^3/uL (0.2-0.9) 10/13/21 15: Eos # (Auto) 0.2 10^3/uL (0.0-0.8) 10/13/21: Baso # (Auto) 0.0 10^3/uL (0.0-0.1) 10/13/21 15: Nucleated RBC % (auto) 0 % 10/13/21: Nucleated RBCs # 0.0 /100WBC 10/13/21 15: Sodium 141 mmol/L (136-145) 10/13/21 15:24 Potassium 3.6 mmol/L (3.5-5.1) 10/13/21 15:24 Chloride 103 mmol/L (98-107) 10/13/21 15:24 Carbon Dioxide 25 mmol/L (22-29) 10/13/21 15:24 Anion Gap 16.6 (5-19) 10/13/21 15:24 BUN 19 mg/dL (8-23) 10/13/21 15:24 Creatinine 1.0 mg/dL (0.5-0.9) H 10/13/21 15:24 GFR Calculation 55.0 mL/min (90-130) L 10/13/21 15:24 Glucose 122 mg/dL (65-115) H 10/13/21 15:24 Calculated Osmolality 296 mOsm/kg (285-295) H 10/13/21 15:24 Calcium 9.3 mg/dL (8.5-10.5) 10/13/21 15:24 Total Bilirubin 0.5 mg/dL (0.15-1.2) 10/13/21 15:24 AST 41 U/L (0-32) H 10/13/21 15:24 ALT 39 U/L (0-33) H 10/13/21 15:24 Alkaline Phosphatase 87 IU/L (35-105) 10/13/21 15:24 Troponin T Baseline 16 ng/L (0-10) H 10/13/21 15:24 Troponin T 120 Minute 16.38 ng/L (0-10) H 10/13/21 17:18 Delta Troponin T 0.38 ABS# (0-10) 10/13/21 17:18 Total Protein 8.0 g/dL (6.6-8.7) 10/13/21 15:24 Albumin 4.5 g/dL (3.5-5.2) 10/13/21 15:24 Globulin 3.5 g/dL (1.3-4.6) 10/13/21 15:24 Discharge Plan Discharge Patient Disposition: Home Clinical Impression: Atypical chest pain Condition: Stable Prescriptions: New aspirin 81 mg tablet,delayed release (DR/EC) 81 mg PO DAILY Qty: 30 0RF isosorbide mononitrate 30 mg tablet extended release 24 hr 30 mg PO DAILY Qty: 30 0RF No Action atorvastatin 10 mg tablet 10 mg PO DAILY Qty: 90 1RF Rx Instructions: due for repeat blood work omeprazole 20 mg capsule,delayed release(DR/EC) 20 mg PO DAILY Qty: 30 5RF flecainide 50 mg tablet 25 mg PO Q12H Qty: 90 3RF Rx Instructions: Dose decreased per Ana Cristina Christie ascorbic acid (vitamin C) 1,000 mg tablet 500 mg PO DAILY Qty: 90 3RF cholecalciferol (vitamin D3) 75 mcg (3,000 unit) tablet 75 mcg PO DAILY Qty: 90 3RF Xarelto 15 mg tablet 15 mg PO DAILY Qty: 100 3RF diltiazem HCl 360 mg capsule,extended release 24hr 360 mg PO DAILY Qty: 100 3RF potassium chloride 20 mEq tablet,ER particles/crystals 20 meq PO BID Qty: 180 3RF losartan 100 mg tablet 100 mg PO DAILY Qty: 100 3RF furosemide 80 mg tablet 80 mg PO BID 0RF Discharge Orders: Discharge ED (Routine); Ordered 10/13/21 Ordered By: Dex Conklin Referrals: Meenu Meza MD [Primary Care Provider] - Discharge Diet: Usual diet Discharge Activity: Limit activity as instructed Patient Instructions: Opioid Safety Activity Restrictions/Additional Instructions: Plans will make arrangements for you to have a Lexiscan sestamibi stress test as an outpatient. Started the Imdur and aspirin daily if you have recurrent symptoms that are persistent return to the emergency room Coding Level of Care Code ED Academic Success Coordinator for Cinthia Roberts Exam Comprehensive
[2021-10-13 15:59] LABS: Troponin(5th) Baseline 16 ng/L (0-10)
--- NOTE | 2021-10-13 17:20 | ECG_ITS ---
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 Measurements Intervals [place] Rate: 74 P: 51 WI: 159 QRS: 42 QRSD: 104 T: 39 QT: 437 QTc: 485 Interpretive Statements SINUS RHYTHM MINIMAL ST DEPRESSION [0.025+ mV ST DEPRESSION] Compared to ECG 10/13/2021 15:35:47 ST (T wave) deviation now present Electronically Signed On 10-14-2021 13:29:07 CDT by Rosa Luna M.D. [id number]
[2021-10-13 17:46] VITALS: BP 124/65; PULSE 67; RESP 16; O2SAT 95
[2021-10-13 17:49] LABS: Troponin 5 2HR 16.38 ng/L (0-10)
[2021-10-13 17:50] LABS: Troponin 5 2HR Delta 0.38 ABS# (0-10)
[2021-10-13 18:33] VITALS: BP 128/79; PULSE 74; O2SAT 96
[2021-10-13 18:38] LABS: Basophils % 0.5 %; Eosinophils # 0.2 10^3/uL (0.0-0.8); Eosinophils % 2.9 %; Hematocrit 44.4 % (37.0-47.0); Hemoglobin 13.8 g/dL (11.5-15.3); Lymphocytes # 2.5 10^3/uL (0.8-4.8); Lymphocytes % 32.3 %; Mean Corpuscular HGB Conc 31.1 g/dL (30.0-36.0); Mean Corpuscular Hemoglobin 28.6 pg (28.0-34.0); Mean Corpuscular Volume 92.1 fl (81-99); Mean Platelet Volume 11.7 fL (7.4-10.4); Monocytes # 0.8 10^3/uL (0.2-0.9); Neutrophils # 4.03 10^3/uL (1.8-7.7); Neutrophils % 52.9 %; Nucleated Red Blood Cells % 0 %; Platelet Count 176 10^3/cmm (130-400); Red Blood Count 4.82 10^6/uL (4.1-5.3); Red Cell Distribution Width 14.4 % (12.1-15.1); White Blood Count 7.6 10^3/uL (4.0-10.0)
[2021-10-13 18:52] LABS: Alanine Aminotransferase 39 U/L (0-33); Albumin Level 4.5 g/dL (3.5-5.2); Alkaline Phosphatase 87 IU/L (35-105); Anion Gap 16.6 (5-19); Aspartate Amino Transferase 41 U/L (0-32); Blood Urea Nitrogen 19 mg/dL (8-23); Calcium 9.3 mg/dL (8.5-10.5); Carbon Dioxide 25 mmol/L (22-29); Chloride 103 mmol/L (98-107); Creatinine Clr Calc Pharmacy 62.8244; Globulin 3.5 g/dL (1.3-4.6); Glucose 122 mg/dL (65-115); Osmolality Calculated 296 mOsm/kg (285-295); Potassium 3.6 mmol/L (3.5-5.1); Sodium 141 mmol/L (136-145); Total Bilirubin 0.5 mg/dL (0.15-1.2)
== END 2021-10-13 18:35 | disposition home or self-care (01) ==
PROVIDERS: Emergency Provider Family Medicine; PCP Internal Medicine
DX: R07.9 Chest pain, unspecified (principal); R07.89 Other chest pain; I10 Essential (primary) hypertension
CPT/HCPCS: 71045; 80053; 84484; 85025; 93005; 99285

== ENCOUNTER → 2021-11-01 09:02 | Outpatient (BNVA) | payer MEDICARE, SELFPAY | PROVIDERS: PCP Internal Medicine; Visit Provider Nurse Practitioner Family | DX: R07.9 Chest pain, unspecified (principal) | CPT/HCPCS: 99213 ==

== ENCOUNTER 2021-11-06 09:24 | Outpatient (CLI) | payer MEDICARE, SELFPAY | END 2021-11-06 09:25 | disposition home or self-care (01) | LOC: RAD 14:16 | PROVIDERS: PCP Internal Medicine; Referring Provider Internal Medicine; Visit Provider Surgery | DX: Z12.11 Encounter for screening for malignant neoplasm of colon (principal) | CPT/HCPCS: 99024; 99202 ==

== ENCOUNTER 2021-11-13 07:27 | Outpatient (CLI) | payer MEDICARE, SELFPAY ==
[2021-11-13 08:22] VITALS: BMI 34.2
--- NOTE | 2021-11-13 08:28 | NMCV_ITS ---
NM sarai perf SPECT r/s* [id number] Tammy Rangel Age: 71 Gender: F : 1950 Exam Date: 11/13/2021 08:52 Ordering Phys: Cayetano Lynne MD ([email or web address]) Technologist: GRISELDA Joshi Exam Location: [facility] Indications: A-flutter STRESS TEST Please see [facility] for [facility] IMAGE PROTOCOL Rest/Stress 1 Lexiscan Day Radiopharmaceutical Dose (mCi) Administration Site Administered by Rest: Tc-99m 10.7 IV - left GRISELDA Joshi Sestamiorion antecubital Stress:Tc-99m 32.2 IV GRISELDA Joshi Sestamiorion Rest: 13-Nov-2021 60 Discovery 630 Stress: 13-Nov-2021 45 Discovery 630 0.4mg Lexiscan. Supine position only as patient was unable to lay prone. SPECT RESULTS Technical Quality: Good Raw Data Analysis: Normal Image Corrections: No attenuation or motion correction applied Summed Stress Score: 0 Summed Rest Score: 0 Summed Difference Score: 0 PERFUSION FINDINGS Fairly uniform myocardial tracer uptake with no significant perfusion abnormalities. FUNCTIONAL RESULTS (calculated via Gated SPECT) Stress Image LV EF (%): 67 Stress EDV (mL):86 TID: 1.11 Stress ESV (mL):28 FUNCTIONAL FINDINGS: Segmental wall motion analysis revealing no gross wall motion abnormalities IMPRESSIONS 1. Unremarkable Myocardial perfusion imaging. 2. Normal LV ejection fraction of 67%. 3. LV wall motion analysis revealing no gross wall motion abnormalities. 4. Normal LV volume. 5. Low probability for coronary ischemia, based on the above findings Dr Cayetano Lynne MD [facility] (Electronically Signed) Final Date: 14 November 2021 07:24 S
--- NOTE | 2021-11-13 08:28 | ECG_ITS ---
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 Interpretive Statements NAME OF STUDY: LEXISCAN SESTAMIBI STRESS TEST INDICATION: Aflutter, PROCEDURE: At the baseline, the EKG revealed normal sinus rhythm with poor R wave progression. The baseline blood pressure was 176/70 mm Hg with a heart rate of 73 beats/min. Lexiscan was infused over a period of 20 seconds. A total of 0.4 milligrams of Lexiscan was infused. The stress phase was continued for a total of 5 minutes. Heart rate at the end of the stress phase was 90 with a blood pressure 167/81. The EKG at the peak infusion revealed nonspecific ST-T changes. Sestamibi was injected 20 seconds after the Lexiscan infusion. Blood pressure at the end of the recovery phase was 159/61 with a heart rate of 89 per minute. CONCLUSION: 1. Nonspecific ST-T changes with the LexiScan infusion 2. No LexiScan induced chest pain or cardiac arrhythmia 3. Normal blood pressure and heart rate response 4. Sestamibi/sestamibi perfusion scan pending; see separate report. Electronically Signed On 11-16-2021 6:51:14 CDT by Cayetano Lynne M.D. [id number]
[2021-11-13] MEDS: regadenoson 0.4 Mg/5 ml Syringe IVP (11:16)
[2021-11-13 11:17] VITALS: BP 159/81; PULSE 81
== END 2021-11-13 07:28 | disposition home or self-care (01) ==
PROVIDERS: PCP Internal Medicine; Visit Provider Internal Medicine Cardiovascular Disease
DX: I48.92 Unspecified atrial flutter (principal)
CPT/HCPCS: 78452; 93017; A9500; J2785

== ENCOUNTER → 2022-04-03 10:39 | Outpatient (BNVA) | payer MEDICARE, SELFPAY | PROVIDERS: PCP Internal Medicine; Visit Provider Internal Medicine Cardiovascular Disease | DX: R42 Dizziness and giddiness (principal); I48.92 Unspecified atrial flutter; Z79.01 Long term (current) use of anticoagulants; I10 Essential (primary) hypertension; E78.5 Hyperlipidemia, unspecified; R60.0 Localized edema | CPT/HCPCS: 99214 ==

== ENCOUNTER 2022-10-09 10:10 | Outpatient (CLI) | payer MEDICARE, SELFPAY ==
--- NOTE | 2022-10-09 10:28 | MM_ITS ---
WS: [id number] BILATERAL SCREENING DIGITAL TOMOSYNTHESIS MAMMOGRAM WITH CAD HISTORY: SCREENING COMPARISON: 10/04/2021 and 06/14/2020 Bilateral CC and MLO views with tomosynthesis and synthetic mammography submitted. Computer aided det ection analyzed. Breast composition: There are scattered areas of fibroglandular density. No suspicious masses, microc alcifications or architectural distortion. MM/[place] [id number] IMPRESSION: BI-RADS: 1-Negative FOLLOW UP: 1 Year Follow-up
== END 2022-10-09 10:11 | disposition home or self-care (01) ==
LOC: RAD 10:17
PROVIDERS: PCP Internal Medicine; Visit Provider Internal Medicine
DX: Z12.31 Encounter for screening mammogram for malignant neoplasm of breast (principal)
CPT/HCPCS: 77063; 77067

== ENCOUNTER → 2022-10-16 12:32 | Outpatient (BNVA) | payer MEDICARE, SELFPAY | PROVIDERS: PCP Internal Medicine; Visit Provider Internal Medicine Cardiovascular Disease | DX: R60.0 Localized edema (principal); I10 Essential (primary) hypertension; I48.92 Unspecified atrial flutter; E78.5 Hyperlipidemia, unspecified | CPT/HCPCS: 36415; 80048; 83880; 99214 ==

== ENCOUNTER 2022-11-05 08:58 | Outpatient (CLI) | payer MEDICARE, SELFPAY ==
--- NOTE | 2022-11-05 09:30 | USCV_ITS ---
Tammy Rangel Age: 72 Gender: F : 1950 Exam Date: 11/05/2022 09:16 Ordering Phys: Cayetano Lynne MD ([email or web address]) Technologist: Dominique Dozier [place] [facility] [place]: HISTORY: Swollen legs PROCEDURES: The following venous structures were evaluated: common femoral vein, profunda vein, proximal portion of the greater saphenous vein, superficial femoral vein, and the popliteal vein. In addition, the posterior tibial veins were evaluated. Serial compression, augmentation maneuvers, and spectral Doppler flow evaluation were performed. Bilateral duplex Venous Insufficiency study of the Deep and Superficial systems was carried out according to normal protocol with the patient in supine positon for deep system and dependent position for the superficial system. FINDINGS: please read tech notes The veins were found to be easily compressible with spontaneous blood flow. Pulsatile flow pattern was noted in the proximal deep veins The reflux time was found to be 1.18 and 1.52 seconds at the greater saphenous vein segments distal to the saphenofemoral junction and at the mid segment on the left side. The venous segment was measuring 0.4 cm in diameter and at the depth of 1.46 and 2.65 cm respectively. No significant reflexes were noted in the rest of the veins. The distal greater saphenous and the below-knee greater sinus vein segments on the left side were not identified CONCLUSIONS 1. No evidence of any thrombosis in the deep or superficial veins bilaterally, based on the above findings 2. Significant venous reflux of greater than 500 ms were noted distal to the saphenofemoral junction and at the mid segment of the greater saphenous vein on the left side. The venous dimensions and depth from the surface are as mentioned above. 3. Features of elevated central venous pressure. 4. The distal and the below-knee greater saphenous vein segments were not visualized on the left side. Dr Cayetano Lynne MD [facility] (Electronically Signed) Final Date: 26 November 2022 10:21 S
== END 2022-11-05 08:59 | disposition home or self-care (01) ==
PROVIDERS: PCP Internal Medicine; Visit Provider Internal Medicine Cardiovascular Disease
DX: R60.0 Localized edema (principal); R06.02 Shortness of breath; E78.5 Hyperlipidemia, unspecified; R93.6 Abnormal findings on diagnostic imaging of limbs
CPT/HCPCS: 93970

== ENCOUNTER → 2023-07-09 09:36 | Outpatient (BNVA) | payer MEDICARE, SELFPAY | PROVIDERS: PCP Internal Medicine; Visit Provider Nurse Practitioner Family | DX: I10 Essential (primary) hypertension (principal); I48.92 Unspecified atrial flutter; Z79.01 Long term (current) use of anticoagulants | CPT/HCPCS: 99214 ==

== ENCOUNTER 2023-10-13 11:18 | Outpatient (CLI) | payer MEDICARE, SELFPAY ==
--- NOTE | 2023-10-13 11:23 | MM_ITS ---
WS: [id number] BILATERAL SCREENING DIGITAL TOMOSYNTHESIS MAMMOGRAM WITH CAD HISTORY: SCREENING COMPARISON: 10/09/2022, 10/04/2021 Bilateral CC and MLO views with tomosynthesis and synthetic mammography submitted. Computer aided det ection analyzed. Breast composition: There are scattered areas of fibroglandular density. No suspicious masses, microc alcifications or architectural distortion. MM/[place] [id number] IMPRESSION: BI-RADS: 1-Negative FOLLOW UP: 1 Year Follow-up
== END 2023-10-13 11:19 | disposition home or self-care (01) ==
LOC: RAD 11:18
PROVIDERS: PCP Internal Medicine; Visit Provider Internal Medicine
DX: Z12.31 Encounter for screening mammogram for malignant neoplasm of breast (principal)
CPT/HCPCS: 77063; 77067

== ENCOUNTER → 2023-11-03 11:18 | Outpatient (BNVA) | payer MEDICARE, SELFPAY | PROVIDERS: PCP Internal Medicine; Visit Provider Internal Medicine Cardiovascular Disease | DX: I48.92 Unspecified atrial flutter (principal); I10 Essential (primary) hypertension; E78.5 Hyperlipidemia, unspecified; R06.02 Shortness of breath; Z79.01 Long term (current) use of anticoagulants | CPT/HCPCS: 99214 ==

== ENCOUNTER → 2024-04-26 08:58 | Outpatient (BNVA) | payer MEDICARE, SELFPAY | PROVIDERS: PCP Internal Medicine; Visit Provider Thoracic Surgery (Cardiothoracic Vascular Surgery) | DX: I96 Gangrene, not elsewhere classified (principal); I89.0 Lymphedema, not elsewhere classified; L97.822 Non-pressure chronic ulcer of other part of left lower leg with fat layer exposed | CPT/HCPCS: 11042; 99213 ==

== ENCOUNTER → 2024-04-28 08:12 | Outpatient (BNVA) | payer MEDICARE, SELFPAY | PROVIDERS: PCP Internal Medicine; Visit Provider Thoracic Surgery (Cardiothoracic Vascular Surgery) | DX: I87.332 Chronic venous hypertension (idiopathic) with ulcer and inflammation of left lower extremity (principal) | CPT/HCPCS: 29581; A6252 ==

== ENCOUNTER → 2024-05-03 10:46 | Outpatient (BNVA) | payer MEDICARE, SELFPAY | PROVIDERS: PCP Internal Medicine; Visit Provider Thoracic Surgery (Cardiothoracic Vascular Surgery) | DX: Z09 Encounter for follow-up examination after completed treatment for conditions other than malignant neoplasm (principal); Z87.2 Personal history of diseases of the skin and subcutaneous tissue | CPT/HCPCS: 99212; A6212 ==

== ENCOUNTER → 2024-05-13 11:06 | Outpatient (BNVA) | payer MEDICARE, SELFPAY | PROVIDERS: PCP Internal Medicine; Visit Provider Internal Medicine Cardiovascular Disease | DX: I48.92 Unspecified atrial flutter (principal); I10 Essential (primary) hypertension; E78.5 Hyperlipidemia, unspecified; R60.0 Localized edema; Z79.01 Long term (current) use of anticoagulants | CPT/HCPCS: 99214 ==

== ENCOUNTER 2025-02-11 08:31 | Outpatient (CLI) | payer MEDICARE, SELFPAY ==
--- NOTE | 2025-02-11 08:38 | MM_ITS ---
WS: [id number] BILATERAL SCREENING DIGITAL TOMOSYNTHESIS MAMMOGRAM WITH CAD HISTORY: SCREENING COMPARISON: 10/13/2023, 10/09/2022 Bilateral CC and MLO views with tomosynthesis and synthetic mammography submitted. Computer aided detection analyzed. Breast composition: There are scattered areas of fibroglandular density. No suspicious masses, microcalcifications or architectural distortion. MM/MM scr BI tomosynthesis [id number] IMPRESSION: BI-RADS: 1 - Negative. FOLLOW UP: 1 Year Follow-up
== END 2025-02-11 08:32 | disposition home or self-care (01) ==
LOC: RAD 08:33
PROVIDERS: PCP Internal Medicine; Visit Provider Internal Medicine
DX: Z12.31 Encounter for screening mammogram for malignant neoplasm of breast (principal); R92.323 Mammographic fibroglandular density, bilateral breasts
CPT/HCPCS: 77063; 77067

== ENCOUNTER → 2025-04-21 14:44 | Outpatient (BNVA) | payer MEDICARE, SELFPAY | PROVIDERS: PCP Internal Medicine; Visit Provider Internal Medicine Cardiovascular Disease | DX: I48.92 Unspecified atrial flutter (principal); Z79.01 Long term (current) use of anticoagulants; I10 Essential (primary) hypertension; E78.5 Hyperlipidemia, unspecified; I87.2 Venous insufficiency (chronic) (peripheral); L97.929 Non-pressure chronic ulcer of unspecified part of left lower leg with unspecified severity | CPT/HCPCS: 99214 ==

== ENCOUNTER → 2025-06-01 13:01 | Outpatient (BNVA) | payer MEDICARE, SELFPAY | PROVIDERS: PCP Internal Medicine; Visit Provider Internal Medicine Cardiovascular Disease | DX: R07.9 Chest pain, unspecified (principal); I49.49 Other premature depolarization | CPT/HCPCS: 93005 ==